=== PATIENT | female | born 1975 | race Caucasian/White ===

== ENCOUNTER 2024-11-01 10:06 | Emergency (ER) | payer SELFPAY ==
[~2024-11-01] VITALS: Ht 149.9 cm; Wt 125.0 kg
[~2024-11-01 10:06] MED LIST: LORTAB 5 OR; SEPTRA DS1 TAB OR
[2024-11-01 10:12] VITALS: BP 143/72
[2024-11-01 10:16] VITALS: BP 124/69
[2024-11-01] MEDS ORDERED: METFORMIN HYD1000 MG PO (10:17)
[2024-11-01 10:31] VITALS: BP 128/71
[2024-11-01] MEDS ORDERED: LIDOcaine HCl 1% (Local Anesth.) 20 ML VIAL IM STA (10:44)
[2024-11-01] MEDS ORDERED: HYDROcodone 7.5 MG/Acetaminophen 325 MG/COMBO PO ONE (10:45)
[2024-11-01] MEDS ORDERED: cefTRIAXone SODIUM 1 GM/VIAL SDV IM ONE (10:45)
[2024-11-01 10:47] VITALS: BP 110/74
[2024-11-01] MEDS ORDERED: HYDROCO/APAP1 T10 PO (10:55)
[2024-11-01] MEDS ORDERED: PENICILLIN V P500 MG PO (10:55)
[2024-11-01 11:11] VITALS: BP 128/71
== END 2024-11-01 11:24 | disposition home or self-care (01) | DRG 607 ==
LOC: ED 10:06
DX: R22.0 Localized swelling, mass and lump, head (principal); E11.9 Type 2 diabetes mellitus without complications
CPT/HCPCS: J0696